=== PATIENT | male | born 1955 | race Caucasian/White ===

== ENCOUNTER 2024-09-10 18:46 | Emergency (ER) | payer BC, MEDICARE ==
[~2024-09-10] VITALS: Ht 177.8 cm; Wt 89.8 kg
[~2024-09-10 18:46] MED LIST: IRBE150T34
[2024-09-10 18:47] VITALS: O2SAT 98
[2024-09-10] MEDS: ACETAMINOPHEN 325MG TABLET PO ONE (19:47)
[2024-09-10 23:06] VITALS: BP 161/93; PULSE 87; RESP 18; TEMP 37.1; O2SAT 98
== END 2024-09-10 23:07 | disposition home or self-care (01) ==
LOC: ER 18:46
DX: M25.511 Pain in right shoulder (principal); F02.80 Dementia in other diseases classified elsewhere, unspecified severity, without behavioral disturbance, psychotic disturbance, mood disturbance, and anxiety; E78.00 Pure hypercholesterolemia, unspecified; G20.A1 Parkinson's disease without dyskinesia, without mention of fluctuations; Z79.899 Other long term (current) drug therapy; I10 Essential (primary) hypertension; Z88.0 Allergy status to penicillin; V43.52XA Car driver injured in collision with other type car in traffic accident, initial encounter; Y93.89 Activity, other specified; Y92.89 Other specified places as the place of occurrence of the external cause; Y99.8 Other external cause status
CPT/HCPCS: 73030; 99283